=== PATIENT | male | born 1995 ===

== ENCOUNTER 2017-12-09 17:56 | Emergency (ER) | payer MEDICAID, OTHER ==
[2017-12-09 18:24] VITALS: BMI 27.6
[2017-12-09 18:25] VITALS: BP 123/74; PULSE 90; RESP 20; O2SAT 98
--- NOTE | 2017-12-09 18:58 | C.PDOC ---
History Of Present Illness 22 y/o male with a 2 day history of cough with yellow sputum, headache, fever, sore throat, malaise, generalized weakness, and body aches. No chest pain or shortness of breath. He has been taking Tylenol at home and denies any sick contacts. Time Seen by Provider: 12/09/17 18:24 Chief Complaint (Nursing): Flu-like Symptoms History Per: Patient Onset/Duration Of Symptoms: Days (2) Current Symptoms Are (Timing): Still Present Location Of Pain: Throat, Diffuse Myalgias, Headache Associated Symptoms: Fever, Sore Throat, Cough, Sputum Severity: Moderate Recent travel outside of the [place]: No Additional History Per: Patient Past Medical History Vital Signs: Last Vital Signs Temp 101.8 F H 12/09/17 18:24 Pulse 90 12/09/17 18:24 Resp 20 12/09/17 18:24 BP 123/74 12/09/17 18:24 Pulse Ox 98 12/09/17 18:24 - Medical History PMH: No Chronic Diseases Surgical History: No Surg Hx Family History: States: Unknown Family Hx - Social History Hx Tobacco Use: No Hx Alcohol Use: No Hx Substance Use: No - Immunization History Hx Tetanus Toxoid Vaccination: No Hx Influenza Vaccination: No Hx Pneumococcal Vaccination: No Review Of Systems Constitutional: Positive for: Fever, Weakness, Malaise ENT: Positive for: Throat Pain Cardiovascular: Negative for: Chest Pain Respiratory: Positive for: Cough. Negative for: Shortness of Breath Gastrointestinal: Negative for: Nausea, Vomiting, Abdominal Pain Musculoskeletal: Negative for: Neck Pain Physical Exam - Physical Exam Appears: Well, Non-toxic, No Acute Distress Skin: Normal Color, Warm, Dry Head: Atraumatic, Normacephalic Ear(s): Left: Normal, Right: Normal Oral Mucosa: Moist Throat: Erythema, No Exudate Neck: Normal, Supple Lymphatic: No Adenopathy Chest: No Deformity Cardiovascular: Rhythm Regular Respiratory: Normal Breath Sounds Back: Normal Inspection Extremity: Normal ROM Neurological/Psych: Oriented x3 ED Course And Treatment O2 Sat by Pulse Oximetry: 98 (RA) Pulse Ox Interpretation: Normal Medical Decision Making Medical Decision Making: Impression: Viral Illness Plan: Motrin Patient is stable and discharged with Tamiflu. All questions answered. Follow up instructions given. Disposition Doctor Will See Patient In The: Office Counseled Patient/Family Regarding: Diagnosis, Need For Followup - Disposition Disposition Time: 18:59 Condition: STABLE - Scribe Statement The provider has reviewed the documentation as recorded by the Reyna Meade Provider Reyna
--- NOTE | 2017-12-09 19:00 | C.PDOC ---
History Of Present Illness 22 y/o male with a 2 day history of cough with yellow sputum, headache, fever, sore throat, malaise, generalized weakness, and body aches. No chest pain or shortness of breath. He has been taking Tylenol at home and denies any sick contacts. Time Seen by Provider: 12/09/17 18:24 Chief Complaint (Nursing): Flu-like Symptoms History Per: Patient Onset/Duration Of Symptoms: Days Current Symptoms Are (Timing): Still Present Location Of Pain: Throat, Diffuse Myalgias, Headache Sick Contacts (Context): None Associated Symptoms: Fever, Chills, Sore Throat, Cough, Sputum, Myalgias. denies: Neck Pain, Nasal Congestion Severity: Moderate Recent travel outside of the [place]: No Additional History Per: Patient Past Medical History Vital Signs: Last Vital Signs Temp 100.6 F H 12/09/17 19:09 Pulse 90 12/09/17 18:24 Resp 20 12/09/17 18:24 BP 123/74 12/09/17 18:24 Pulse Ox 98 12/09/17 19:08 - Medical History PMH: No Chronic Diseases Surgical History: No Surg Hx Family History: States: Unknown Family Hx - Social History Hx Tobacco Use: No Hx Alcohol Use: No Hx Substance Use: No - Immunization History Hx Tetanus Toxoid Vaccination: No Hx Influenza Vaccination: No Hx Pneumococcal Vaccination: No Review Of Systems Constitutional: Positive for: Fever, Chills, Weakness, Malaise ENT: Positive for: Throat Pain Cardiovascular: Negative for: Chest Pain Respiratory: Positive for: Cough. Negative for: Shortness of Breath Gastrointestinal: Negative for: Nausea, Vomiting, Abdominal Pain Neurological: Positive for: Headache Physical Exam - Physical Exam Appears: Well, Non-toxic, No Acute Distress Skin: Normal Color, Warm, Dry, No Diaphoretic Head: Atraumatic, Normacephalic Eye(s): bilateral: Normal Inspection Ear(s): Bilateral: Normal Oral Mucosa: Moist Throat: Erythema, No Exudate Neck: Normal, Supple Chest: No Deformity Cardiovascular: Rhythm Regular, No Murmur Respiratory: Normal Breath Sounds, No Rales, No Rhonchi, No Wheezing Gastrointestinal/Abdominal: Soft, No Tenderness Extremity: Normal ROM, No Tenderness Neurological/Psych: Oriented x3, Normal Speech, Normal Cognition ED Course And Treatment O2 Sat by Pulse Oximetry: 98 Medical Decision Making Medical Decision Making: Impression: Viral Illness Plan: Motrin Patient is stable and discharged with Tamiflu. All questions answered. Follow up instructions given. Disposition Counseled Patient/Family Regarding: Diagnosis, Need For Followup, Rx Given - Disposition Referrals: Nj Singh DO [Staff Provider] - Disposition: HOME/ ROUTINE Disposition Time: 18:56 Condition: STABLE Additional Instructions: Drink increased fluids. Take Tylenol or Motrin every 6 hours for pain, fever. Gargle with warm salty water several times a day for throat pain. Follow up with Dr Singh next week. Prescriptions: Ibuprofen [Motrin] 600 mg PO TID #30 tab Oseltamivir Phosphate [Tamiflu] 75 mg PO BID #10 capsule Instructions: Influenza (ED) Forms: General Discharge Instructions, [facility] ([place]), School Excuse - Clinical Impression Clinical Impression: Influenza-like illness - Scribe Statement The provider has reviewed the documentation as recorded by the Scribangel Meade Provider Schedule
[2017-12-09 19:13] VITALS: TEMP 100.6
== END 2017-12-09 19:12 | disposition home or self-care (01) ==
LOC: C.ER 17:56
DX: J11.1 Influenza due to unidentified influenza virus with other respiratory manifestations (principal)